=== PATIENT | female | born 1945 | race Caucasian/White ===

== ENCOUNTER 2019-10-16 13:19 | Outpatient (CLI) | payer MEDICARE, OTHER ==
[~2019-10-16 13:19] MED LIST: Iopamidol-370 76% 500 ML 1 ML ONE
--- NOTE | 2019-10-16 16:20 | CT ---
CT OF ABDOMEN AND PELVIS PERFORMED WITH CONTRAST ENHANCEMENT: 10/16/19 HISTORY: Left sided abdominal pain, constipation. COMPARISON: None. The lung bases are clear of any infiltrative process. The liver and spleen show no focal findings. Pancreas has slightly decreased attenuation but there is no peripancreatic inflammatory process. I do not appreciate any ductal dilatation. Gallbladder regio ns appears unremarkable. Right and left adrenal glands and right and left kidneys are normal in size. There is a left renal cy st measuring 2.9 cm. There is no significant periaortic or mesenteric lymphadenopathy appreciated. CT OF PELVIS PERFORMED WITH INTRAVENOUS CONTRAST ENHANCEMENT: Some sigmoid diverticulosis noted. The wall of the sigmoid colon appears slightly thickened. Some min imal pericolonic fat stranding is present. There is no pelvic lymphadenopathy or mass demonstrated. IMPRESSION: 1. Although the sigmoid colon is not distended there does appear to be a segment of sigmoid colo n which shows mild wall thickening. There is also diverticular disease in this area. Some minimal per icolonic fat stranding. I cannot exclude this is early changes of diverticulitis. I think a mass woul d be considered less likely but not excluded. 2. Somewhat generalized overall decreased attenuation to the pancreas of uncertain significance given the lack of any peripancreatic inflammatory change or other findings. POS: [facility]
== END 2019-10-16 13:20 | disposition home or self-care (01) ==
LOC: BICCT 13:19
PROVIDERS: ATTEND Internal Medicine Gastroenterology
DX: K21.9 Gastro-esophageal reflux disease without esophagitis (principal); R10.32 Left lower quadrant pain; R10.12 Left upper quadrant pain; K59.09 Other constipation; K63.89 Other specified diseases of intestine
CPT/HCPCS: 74177; 82565; Q9967

== ENCOUNTER 2019-11-14 07:05 | Outpatient (CLI) | payer MEDICARE, OTHER ==
--- NOTE | 2019-11-14 09:37 | ULT ---
THYROID ULTRASOUND: HISTORY: Thyroid nodules. TECHNIQUE: Real-time imaging of the right and left lobes of the gland was performed. FINDINGS: The right lobe measures 1.9 x 2.1 x 5.5 cm and the left lobe 2.2 x 2.1 x 5.8 cm. Bilateral thyroid no dules are noted. Many of these are cystic. On the left side in the upper pole region is a 10 x 17 mm solid nodule, slightly hypoechoic to surrounding thyroid, wider than tall with smooth, well defined m argins and no internal calcifications. This would correspond to a TI-RADS 4 lesion. There are other s maller solid nodules bilaterally. IMPRESSION: Multiple bilateral cystic and solid thyroid nodules. The largest nodule is in the upper pole of the l eft lobe and is a TI-RADS 4 nodule, measuring 1 x 1.7 cm. Given the size, recommendation for followup would be a yearly follow-up study. POS: [facility]
== END 2019-11-14 07:06 | disposition home or self-care (01) ==
LOC: BICULT 07:05
PROVIDERS: ATTEND Internal Medicine Cardiovascular Disease
DX: E07.9 Disorder of thyroid, unspecified (principal); E04.2 Nontoxic multinodular goiter
CPT/HCPCS: 76536

== ENCOUNTER 2019-11-15 07:14 | Outpatient (CLI) | payer MEDICARE, OTHER ==
[2019-11-15 10:27] LABS: #Basophils 0.1 thou/uL (0.0-0.2); #Eosinphils 0.2 thou/uL (0.0-0.7); #Monocytes 0.5 thou/uL (0.11-0.59); #Neutrophils 3.5 thou/uL (1.40-6.50); %Basophils 0.9 % (0.0-1.0); %Eosinophils 2.6 % (0.0-10.0); %Lymphocytes 32.4 % (21.0-51.0); %Monocytes 8.6 % (0.0-10.0); %Neutrophils 55.5 % (42.0-75.0); Hemoglobin 13.6 g/dL (12.0-16.0); Hemoglobin A1c 5.5 % (4.0-6.0); Mean Corpuscular HGB CONC 32.3 g/dL (32.0-36.0); Mean Corpuscular Hemoglobin 28.8 pg (27.0-31.0); Mean Corpuscular Volume 89.2 fL (78.0-98.0); Platelet Count 316 thou/uL (130-400); RBC Distribution Width 11.7 % (11.5-14.5); Red Blood Cell (RBC) Count 4.71 mill/uL (4.20-5.40); White Blood Cell (WBC) Count 6.3 thou/uL (4.8-10.8)
[2019-11-15 10:36] LABS: Anion Gap 13 mmol/L (10-20); BUN (Urea Nitrogen) 17 mg/dL (9.8-20.1); Calc. Creatinine Clearance 0 mL/min (70-130); Calcium 9.5 mg/dL (7.8-10.44); Carbon Dioxide 30 mmol/L (23-31); Chloride 99 mmol/L (98-107); Estimated GFR-MDRD 63; Glucose 92 mg/dL (83-110); Potassium 4.5 mmol/L (3.5-5.1); Sodium 137 mmol/L (136-145)
== END 2019-11-15 07:15 | disposition home or self-care (01) ==
LOC: LABBT 07:14
PROVIDERS: ATTEND Surgery
DX: Z01.812 Encounter for preprocedural laboratory examination (principal); K56.699 Other intestinal obstruction unspecified as to partial versus complete obstruction
CPT/HCPCS: 80048; 83036; 85025

== ENCOUNTER 2019-11-15 08:30 | Inpatient (IN) | payer MEDICARE, OTHER ==
[2019-11-21] MEDS ORDERED: ceFOXitin 2 GM/50 ML Duplex BAG ONE (08:18)
[2019-11-21] MEDS ORDERED: Rocuronium Bromide 10 MG/ML (10ML VIAL) ONE (09:03)
[2019-11-21] MEDS ORDERED: Lidocaine 1% PF 5 ML VIAL ONE (09:03)
[2019-11-21] MEDS ORDERED: Bupivacaine HCl 0.5%/Epinephrine 1:200,000/PF 30 ml Vial ONE (09:03)
[2019-11-21] MEDS ORDERED: Ondansetron PF 4 MG/2 ML Vial ONE (09:03)
[2019-11-21] MEDS ORDERED: Dexamethasone 20 MG/5 ML VIAL ONE ×2 (09:03)
[2019-11-21] MEDS ORDERED: Glycopyrrolate 0.2 MG/ML 5 ML SYRINGE ONE ×2 (09:03)
[2019-11-21] MEDS ORDERED: PROPOFOL 200 MG/20 ML VIAL ONE (09:03)
[2019-11-21] MEDS ORDERED: Dexamethasone 4 mg/ml Vial ONE (09:24)
[2019-11-21] MEDS ORDERED: Fentanyl 100 MCG/2 ML VIAL ONE ×3 (09:26→14:23)
[2019-11-21] MEDS ORDERED: Midazolam HCl 2 mg/2 ml Vial ONE ×2 (09:26→10:19)
[2019-11-21] MEDS ORDERED: Fentanyl 250 MCG/5 ML VIAL ONE (10:19)
[2019-11-21] MEDS ORDERED: Promethazine HCl 25 MG/ML VIAL IM PRN ×3 (12:52→16:06)
[2019-11-21] MEDS ORDERED: Promethazine HCl 25 MG/ML VIAL SLOW IVP PRN (12:52)
[2019-11-21] MEDS ORDERED: Ondansetron HCl/PF 4 MG/2 ML Vial IVP PRN (12:52)
[2019-11-21] MEDS ORDERED: cefOXitin 2 GM VIAL ONE (13:00)
[2019-11-21] MEDS ORDERED: Ondansetron PF 4 MG/2 ML Vial IVP PRN ×2 (14:31→16:06)
[2019-11-21] MEDS ORDERED: hydrALAZINE 20 MG/ML VIAL SLOW IVP PRN (14:31)
[2019-11-21] MEDS ORDERED: Fentanyl 100 MCG/2 ML VIAL SLOW IVP PRN ×2 (14:31)
[2019-11-21] MEDS ORDERED: traMADol HCl 50 MG TAB PO PRN ×2 (14:31)
[2019-11-21] MEDS: D5 1/2 NS w/20 mEq KCL 1,000 ML IV SCH (15:12)
[2019-11-21 15:26] VITALS: BMI 27.3
[2019-11-21] MEDS ORDERED: diphenhydrAMINE 25 MG CAP PO PRN (16:06)
[2019-11-21] MEDS ORDERED: diphenhydrAMINE 50 MG/ML VIAL IVP PRN (16:06)
[2019-11-21] MEDS ORDERED: Naloxone HCl 0.4 mg/ml Vial IV PRN (16:06)
[2019-11-21] MEDS ORDERED: diphenhydrAMINE 50 MG/ML VIAL IM PRN (16:06)
[2019-11-21] MEDS ORDERED: Zolpidem Tartrate 5 MG TAB PO PRN (16:06)
[2019-11-21] MEDS ORDERED: Communication Order-Pharmacy FS SCH (16:15)
[2019-11-21] MEDS: fentaNYL Citrate/PF 2,000 MCG in Sodium Chloride 0.9% 60 ML IV PRN (16:28)
[2019-11-21] MEDS: Enoxaparin Sodium 40 MG/0.4 ML SYRINGE SC SCH (20:32)
[2019-11-21] MEDS: Famotidine/PF 20 mg/2ml Vial SLOW IVP SCH (20:32)
[2019-11-21] MEDS: cefOXitin Sodium/Dextrose,Iso 1 GM in Premix Bag 1 BAG IVPB SCH (20:32)
[2019-11-21] MEDS: Famotidine 20 MG TAB PO SCH (22:56)
[2019-11-22] MEDS: D5 1/2 NS w/20 mEq KCL 1,000 ML IV SCH ×3 (04:59→22:24)
[2019-11-22 05:14] LABS: #Lymphocytes 1.7 thou/uL (1.20-3.40); #Monocytes 1.1 thou/uL (0.11-0.59); #Neutrophils 10.3 thou/uL (1.40-6.50); %Eosinophils 0.1 % (0.0-10.0); %Lymphocytes 12.8 % (21.0-51.0); %Monocytes 8.5 % (0.0-10.0); %Neutrophils 78.6 % (42.0-75.0); Hemoglobin 11.3 g/dL (12.0-16.0); Mean Corpuscular HGB CONC 33.3 g/dL (32.0-36.0); Mean Corpuscular Hemoglobin 29.9 pg (27.0-31.0); Mean Corpuscular Volume 89.8 fL (78.0-98.0); Mean Platelet Volume 6.7 fL (7.4-10.4); Platelet Count 290 thou/uL (130-400); RBC Distribution Width 11.5 % (11.5-14.5); Red Blood Cell (RBC) Count 3.77 mill/uL (4.20-5.40); White Blood Cell (WBC) Count 13.1 thou/uL (4.8-10.8)
[2019-11-22 05:36] LABS: Anion Gap 8 mmol/L (10-20); BUN (Urea Nitrogen) 7 mg/dL (9.8-20.1); Calc. Creatinine Clearance 82 mL/min (70-130); Calcium 8.2 mg/dL (7.8-10.44); Carbon Dioxide 28 mmol/L (23-31); Chloride 100 mmol/L (98-107); Estimated GFR-MDRD 78; Glucose 149 mg/dL (83-110); Potassium 4.7 mmol/L (3.5-5.1); Sodium 131 mmol/L (136-145)
[2019-11-22] MEDS: cefOXitin Sodium/Dextrose,Iso 1 GM in Premix Bag 1 BAG IVPB SCH (06:00)
--- NOTE | 2019-11-22 07:55 | PDOC.GSPN ---
Surgery Progress Note: Subj - Subjective Narrative: Pt is post-op day 1 for a lap assisted sigmoid colectomy. Pt reports 10/10 lower back pain overnight, that has somewhat subsided since pin or clip fastener hours with position changes and warm compresses. She is also using a DISPOSAL WORKER pump 1-3x/hr and her overall pain level is a 6/10. She reports some nausea, but no vomiting and is tolerating clear liquids well so far. She has not been up to ambulate yet , but plans to do so this a.m. She has not had flatus or a BM, but does not feel bloated. Catheter is still present, with current plans to remove this afternoon. Surgery Progress Note: Obj - Vital signs Vital signs: Vital Signs - Most Recent Temp Pulse Resp BP Pulse Ox 98.1 F 60 18 139/65 97 11/22/19 07:42 11/22/19 07:42 11/22/19 07:42 11/22/19 07:42 11/22/19 07:42 - Physical Exam General: no distress, well nourished Cardiovascular: regular rate and rhythm Respiratory: clear to auscultation, normal expansion, normal respiratory effort Abdomen: soft, nondistended, decreased bowel sounds, appropriately tender Psychiatric: oriented to time, oriented to person, oriented to place, speech is normal Wound: healing well Surgery Progress Note: Results - Labs Result Diagrams: 11/22/19 04:59 11/22/19 04:59 Lab results: Laboratory Results - last 24 hr 11/22/19 11/22/19 04:59 04:59 WBC 13.1 H RBC 3.77 L Hgb 11.3 L Hct 33.8 L MCV 89.8 MCH 29.9 MCHC 33.3 RDW 11.5 Plt Count 290 MPV 6.7 L Neutrophils % 78.6 H Lymphocytes % 12.8 L Monocytes % 8.5 Eosinophils % 0.1 Basophils % 0.0 Neutrophils # 10.3 H Lymphocytes # 1.7 Monocytes # 1.1 H Eosinophils # 0.0 Basophils # 0.0 Sodium 131 L Potassium 4.7 Chloride 100 Carbon Dioxide 28 Anion Gap 8 L BUN 7 L Creatinine 0.73 Estimated GFR (MDRD) 78 Glucose 149 H Calcium 8.2 Surgery Progress Note: A/P - Problem (1) S/P laparoscopic-assisted sigmoidectomy Current Visit: Yes Code(s): Z90.49 - ACQUIRED ABSENCE OF OTHER SPECIFIED PARTS OF DIGESTIVE TRACT Status: Acute - Plan Plan: Pt was stable overnight, and has remained afebrile, and non-tachycardic. Her pain is relatively well controlled on her DISPOSAL WORKER pump, and she is tolerating clear liquids well. No flatus or BM yet. Plan- -OOB/Ambulate to encourage flatus -Continue DISPOSAL WORKER Pump for another 24 hours at least -D/C Byrd this afternoon and track Is & Os -Progress Diet to full liquids starting with dinner today -Plan to discharge home likely on Monday Addendum - Physician - Physician Attestation Date/Time: 11/22/19 1214 I personally performed or re-performed the physical examination and medical decision making. I have verified all student documentation or findings, including history, physical exam and/or medical decision making. Doing well. Tena clears. Pain better controlled today Full liquids for dinner. Continue DISPOSAL WORKER, added schedule oral tylenol. Ofirmev not available.
[2019-11-22] MEDS: Acetaminophen 500 MG TAB PO SCH ×3 (08:16→23:32)
[2019-11-22] MEDS: Famotidine 20 MG TAB PO SCH ×2 (08:17→20:42)
[2019-11-22] MEDS: Montelukast Sodium 10 mg Tablet PO SCH (08:17)
[2019-11-22] MEDS ORDERED: Prevnar 13-Val Conj/PF 0.5 ML SYRINGE IM ONE (09:00)
[2019-11-22] MEDS: Famotidine/PF 20 mg/2ml Vial SLOW IVP SCH ×2 (15:44→20:52)
[2019-11-22] MEDS: Enoxaparin Sodium 40 MG/0.4 ML SYRINGE SC SCH (20:41)
[2019-11-23] MEDS: Famotidine 20 MG TAB PO SCH (08:17)
[2019-11-23] MEDS: Montelukast Sodium 10 mg Tablet PO SCH (08:17)
[2019-11-23] MEDS: Acetaminophen 500 MG TAB PO SCH (08:18)
[2019-11-23] MEDS: fentaNYL Citrate/PF 2,000 MCG in Sodium Chloride 0.9% 60 ML IV PRN (08:18)
[2019-11-23] MEDS ORDERED: traMADol HCl 50 MG TAB PO PRN (09:56)
--- NOTE | 2019-11-23 09:56 | PDOC.GSPN ---
Surgery Progress Note: Subj - Subjective Narrative: Pain controlled with LAUNDRY ROUTE DRIVER. She is not using it as much. No nausea or bloating Surgery Progress Note: Obj - Vital signs Vital signs: Vital Signs - Most Recent Temp Pulse Resp BP Pulse Ox 98.1 F 63 16 112/61 94 L 11/23/19 08:11 11/23/19 08:11 11/23/19 08:11 11/23/19 08:11 11/23/19 08:11 - Physical Exam General: no distress Respiratory: clear to auscultation Abdomen: soft, appropriately tender Wound: healing well Surgery Progress Note: Results - Labs Result Diagrams: 11/22/19 04:59 11/22/19 04:59 Surgery Progress Note: A/P - Problem (1) S/P laparoscopic-assisted sigmoidectomy Current Visit: Yes Code(s): Z90.49 - ACQUIRED ABSENCE OF OTHER SPECIFIED PARTS OF DIGESTIVE TRACT Status: Acute - Plan Plan: POD 2 -stay on fulls for two more days -try tramadol for pain -continue to ambulate
[2019-11-23] MEDS ORDERED: D5 1/2 NS w/20 mEq KCL 1,000 ML IV SCH (09:57)
[2019-11-23] MEDS: traMADol HCl 50 MG TAB PO PRN ×2 (11:47→21:10)
[2019-11-23] MEDS: Famotidine/PF 20 mg/2ml Vial SLOW IVP SCH (12:58)
[2019-11-23] MEDS: Enoxaparin Sodium 40 MG/0.4 ML SYRINGE SC SCH (21:10)
[2019-11-24] MEDS: Montelukast Sodium 10 mg Tablet PO SCH (09:40)
[2019-11-24] MEDS: traMADol HCl 50 MG TAB PO PRN ×2 (10:04→20:50)
[2019-11-24] MEDS: Ondansetron ODT 4 MG TAB PO PRN ×2 (10:05→20:48)
[2019-11-24] MEDS: Enoxaparin Sodium 40 MG/0.4 ML SYRINGE SC SCH (20:50)
[2019-11-25 04:01] VITALS: TEMP 98.5
[2019-11-25 07:50] VITALS: BP 118/71
[2019-11-25] MEDS: Montelukast Sodium 10 mg Tablet PO SCH (08:08)
--- NOTE | 2019-11-25 09:14 | DIS ---
DATE OF ADMISSION: 11/21/2019 DATE OF DISCHARGE: 11/25/2019 ADMITTING DIAGNOSIS: Chronic diverticulitis with stricture. DISCHARGE DIAGNOSIS: Chronic diverticulitis with stricture. PROCEDURE PERFORMED: Left colectomy by Dr. Paul without complication. CONDITION ON DISCHARGE: Improved. STAFF: Gaudencio Paul MD HOSPITAL COURSE: The patient's postop course was uneventful. She was started on a clear liquid diet immediately after surgery. This was advanced to full liquids without difficulty. On the day of discharge, she is tolerating full liquids and soft diet. She is ambulatory. She will be discharged home. She will follow up with me in 10 days. Pathology pending at the time of this dictation. Job ID: [id number]
[2019-11-25] MEDS: traMADol HCl 50 MG TAB PO PRN (09:32)
[2019-11-25] MEDS: Ondansetron ODT 4 MG TAB PO PRN (09:33)
--- NOTE | 2019-11-26 00:10 | OP ---
DATE OF PROCEDURE: 11/21/2019 PREOPERATIVE DIAGNOSIS: Chronic diverticulitis with stricture. POSTOPERATIVE DIAGNOSIS: Chronic diverticulitis with stricture. PROCEDURE PERFORMED: Laparoscopic left colectomy with low pelvic anastomosis, laparoscopic mobilization of splenic flexure. ANESTHESIA: General. ESTIMATED BLOOD LOSS: Minimal. COMPLICATIONS: None. FINDINGS: Chronic diverticulitis. DESCRIPTION OF PROCEDURE: The patient undergone preop tap blocks, taken to the operating room and laid supine on the operating table. After general anesthetic was obtained, a Byrd was placed. The abdomen was shaved, prepped, and draped in a sterile fashion. Left subcostal 5 mm Optiview trocar was placed and high-flow pneumoperitoneum was obtained. 5 mm ports were placed to the right of the umbilicus, to the right upper abdomen, and to the left side of the abdomen. A 12 mm port was placed in the right lower quadrant. The patient was placed in Trendelenburg position. The small bowel was removed out of the pelvis. The peritoneum was incised on the medial aspect of the sigmoid colon mesentery. A medial to lateral dissection was performed. The left ureter was found and excluded from the dissection. The base of the MARTA was taken using a laparoscopic white load on the Chadron stapler. Mobilization was performed down into the pelvis to the area of the rectosigmoid junction, where a circumferential dissection was performed. All adhesions were taken down on the lateral abdominal wall. The left colon was mobilized up the left abdomen and the splenic flexure was mobilized in the usual fashion. The transverse colon mesentery was taken off the splenic flexure and distal transverse colon to facilitate this dissection. This allowed for the upper left colon and splenic flexure to be brought down into the pelvis under no tension. The stapler was fired across the rectosigmoid junction. A 5 cm incision was made in the left lower abdomen in oblique fashion. A muscle-splitting incision was made. The Ayan wound retractor was placed and the proximal colon brought up through this opening. Location for the proximal EEA was found and a small colotomy was made. The 31 anvil was passed proximally and its sharp pin brought out on the antimesenteric surface of the colon above. The colon was stapled off just distal to that. The specimen was sent to Path for final diagnosis. This proximal anvil was dropped back into the abdominal cavity at the top and the Ayan wound retractor was placed. This was able to be brought down into the pelvis under no tension. The 31 stapler was brought up through the anus and its sharp pin brought out on the antimesenteric surface of the colon below, connected to the anvil from above and the anastomosis was tightened, and the stapler was tightened down into the green zone and then fired. There were 2 good rings of tissue. The anastomosis was tested by air insufflation under saline in the pelvis without leak. There was no bleeding in the abdomen. There was no injury to other intraabdominal structures. The 12-mm port site was closed using GraNee needle and 0 Vicryl tie. All ports were removed under direct visualization without bleeding. The muscle-splitting incision in the left lower abdomen was closed anterior and posteriorly with PDS. The subcutaneous tissues were all irrigated copiously using pulse irrigation and wounds were all closed using 3-0 Vicryl, 4-0 Monocryl, and Dermabond. The patient was sent to Recovery in stable condition. All instrument counts, needle counts, and lap counts were correct. Job ID: [id number]
== END 2019-11-25 10:19 | disposition home or self-care (01) | DRG 330 ==
LOC: SURG A 11-21 07:17
PROVIDERS: ADMIT Surgery; ATTEND Surgery
PROC: 0DTG4ZZ Resection of Left Large Intestine, Percutaneous Endoscopic Approach (ICD-10-PCS; principal; 2019-11-21)
DX: K57.32 Diverticulitis of large intestine without perforation or abscess without bleeding (principal); K56.699 Other intestinal obstruction unspecified as to partial versus complete obstruction; Z79.82 Long term (current) use of aspirin; E78.5 Hyperlipidemia, unspecified; I10 Essential (primary) hypertension; J45.909 Unspecified asthma, uncomplicated
CPT/HCPCS: 36415; 36416; 80048; 84439; 84443; 84481; 85025; 86376; 88307; J0670; J0694; J1100; J1650; J2001; J2250; J2405; J2704; J3010; J3490; Q0162; S0028

== ENCOUNTER 2022-10-31 10:19 | Outpatient (CLI) | payer MEDICARE, OTHER | END 2022-10-31 10:20 | disposition home or self-care (01) | LOC: RAD-FRANK 10:19 | PROVIDERS: ATTEND Nurse Practitioner Family | DX: K59.00 Constipation, unspecified (principal) | CPT/HCPCS: 74019 ==

== ENCOUNTER 2023-12-10 17:36 | Observation (INO) | payer MEDICARE, OTHER ==
[2023-12-10 18:04] LABS: #Basophils 0.1 thou/uL (0.0-0.2); #Eosinphils 0.3 thou/uL (0.0-0.7); #Monocytes 0.5 thou/uL (0.11-0.59); #Neutrophils 4.1 thou/uL (1.40-6.50); %Basophils 0.7 % (0.0-1.0); %Eosinophils 3.8 % (0.0-10.0); %Lymphocytes 33.8 % (21.0-51.0); %Neutrophils 54.4 % (42.0-75.0); Hematocrit 37.2 % (36.0-47.0); Hemoglobin 12.7 g/dL (12.0-16.0); Mean Corpuscular HGB CONC 34.1 g/dL (32.0-36.0); Mean Corpuscular Hemoglobin 29.9 pg (27.0-31.0); Mean Corpuscular Volume 87.5 fl (78.0-98.0); Mean Platelet Volume 8.8 fL (7.4-10.4); Platelet Count 280 10x3/uL (130-400); RBC Distribution Width 12.8 % (11.5-14.5); Red Blood Cell (RBC) Count 4.25 mill/uL (4.20-5.40); White Blood Cell (WBC) Count 7.6 10x3/uL (4.8-10.8)
[2023-12-10 18:56] LABS: ALT (SGPT) 12 U/L (8-55); AST (SGOT) 21 U/L (5-34); Albumin 4.2 g/dL (3.4-4.8); Alkaline Phosphatase 90 U/L (40-110); Anion Gap 12 mmol/L (10-20); BUN (Urea Nitrogen) 20 mg/dL (9.8-20.1); Bilirubin, Total 0.3 mg/dL (0.2-1.2); Calc. Creatinine Clearance 0 mL/min (70-130); Calcium 9.1 mg/dL (7.8-10.44); Carbon Dioxide 26 mmol/L (23-31); Chloride 99 mmol/L (98-107); Estimated GFR 67; Globulin 3.2 g/dL (2.4-3.5); Glucose 84 mg/dL (83-110); Potassium 3.7 mmol/L (3.5-5.1); Protein, Total 7.4 g/dL (5.8-8.1); Sodium 133 mmol/L (136-145); Troponin I Less than 0.010 ng/mL (< 0.028)
[2023-12-10] MEDS ORDERED: Ondansetron PF 4 MG/2 ML Vial IVP PRN (20:10)
[2023-12-10] MEDS ORDERED: Senokot S 8.6-50 MG TAB PO PRN (20:10)
[2023-12-10] MEDS ORDERED: Acetaminophen 325 MG TAB PO PRN (20:10)
[2023-12-10] MEDS ORDERED: Calcium Carbonate 500 MG ChewTAB PO PRN (20:10)
[2023-12-10] MEDS ORDERED: traMADol HCl 50 MG TAB PO PRN (20:10)
[2023-12-10] MEDS ORDERED: ALPRAZolam 0.5 MG TAB PO PRN (20:59)
[2023-12-10] MEDS ORDERED: Atorvastatin Calcium 10 MG TAB PO SCH (21:00)
[2023-12-10 21:24] LABS: Troponin I Less than 0.010 ng/mL (< 0.028)
[2023-12-10 22:17] VITALS: BMI 24.2
[2023-12-10] MEDS: Sodium Chloride 0.9% 1,000 ML IV SCH (22:33)
[2023-12-11 00:16] LABS: Troponin I Less than 0.010 ng/mL (< 0.028)
[2023-12-11 04:58] LABS: #Basophils 0.1 thou/uL (0.0-0.2); #Eosinphils 0.3 thou/uL (0.0-0.7); #Monocytes 0.5 thou/uL (0.11-0.59); #Neutrophils 2.8 thou/uL (1.40-6.50); %Basophils 0.9 % (0.0-1.0); %Eosinophils 5.1 % (0.0-10.0); %Lymphocytes 34.1 % (21.0-51.0); %Monocytes 9.6 % (0.0-10.0); %Neutrophils 49.9 % (42.0-75.0); Hematocrit 34.5 % (36.0-47.0); Hemoglobin 11.5 g/dL (12.0-16.0); Mean Corpuscular HGB CONC 33.3 g/dL (32.0-36.0); Mean Corpuscular Hemoglobin 29.7 pg (27.0-31.0); Mean Corpuscular Volume 89.1 fl (78.0-98.0); Mean Platelet Volume 8.8 fL (7.4-10.4); Platelet Count 227 10x3/uL (130-400); RBC Distribution Width 13.1 % (11.5-14.5); Red Blood Cell (RBC) Count 3.87 mill/uL (4.20-5.40); White Blood Cell (WBC) Count 5.5 10x3/uL (4.8-10.8)
[2023-12-11 05:24] LABS: ALT (SGPT) 10 U/L (8-55); AST (SGOT) 15 U/L (5-34); Albumin 3.4 g/dL (3.4-4.8); Alkaline Phosphatase 69 U/L (40-110); Anion Gap 13 mmol/L (10-20); BUN (Urea Nitrogen) 20 mg/dL (9.8-20.1); Bilirubin, Total 0.3 mg/dL (0.2-1.2); Calc. Creatinine Clearance 62 mL/min (70-130); Calcium 8.5 mg/dL (7.8-10.44); Carbon Dioxide 25 mmol/L (23-31); Chloride 104 mmol/L (98-107); Estimated GFR 75; Globulin 2.5 g/dL (2.4-3.5); Glucose 91 mg/dL (83-110); Potassium 3.5 mmol/L (3.5-5.1); Protein, Total 5.9 g/dL (5.8-8.1); Sodium 138 mmol/L (136-145)
[2023-12-11] MEDS: Sodium Chloride 0.9% 1,000 ML IV SCH (08:20)
[2023-12-11 08:25] VITALS: TEMP 97.5
[2023-12-11] MEDS ORDERED: Aspirin 81 mg Enteric Coated Tablet PO SCH (09:00)
[2023-12-11] MEDS ORDERED: Ezetimibe 10 MG TAB PO SCH (09:00)
[2023-12-11] MEDS ORDERED: BuPROPion XL 150 MG ER.TAB PO SCH (09:00)
[2023-12-11] MEDS ORDERED: Montelukast Sodium 10 mg Tablet PO SCH (09:00)
[2023-12-11] MEDS ORDERED: Enoxaparin 40 MG (0.4 mL) SYRINGE SC SCH (09:00)
[2023-12-11] MEDS ORDERED: Regadenoson 0.4 MG/5 ML SYRINGE ONE (11:48)
[2023-12-11 13:09] VITALS: BP 167/79
[2023-12-11] MEDS ORDERED: Potassium Chloride 20 MEQ TAB PO SCH (13:15)
== END 2023-12-11 14:25 | disposition home or self-care (01) ==
LOC: SUATTDRO 17:36 → ERS 17:36 → 2NO 20:10
PROVIDERS: ADMIT Internal Medicine; ATTEND Internal Medicine
DX: R07.9 Chest pain, unspecified (principal); I12.9 Hypertensive chronic kidney disease with stage 1 through stage 4 chronic kidney disease, or unspecified chronic kidney disease; N18.2 Chronic kidney disease, stage 2 (mild); D64.9 Anemia, unspecified; E87.6 Hypokalemia; E87.1 Hypo-osmolality and hyponatremia; E78.5 Hyperlipidemia, unspecified; F41.9 Anxiety disorder, unspecified; F32.A Depression, unspecified; Z88.5 Allergy status to narcotic agent; Z79.82 Long term (current) use of aspirin; Z79.899 Other long term (current) drug therapy
CPT/HCPCS: 71045; 78452; 80053 ×2; 83880; 84484 ×2; 85025 ×2; 93005; 93017; 99285; A9502; G0378 ×3; J2785; 36415; J7050